=== PATIENT | male | born 1985 | race Caucasian/White ===

== ENCOUNTER 2016-09-19 04:00 | Emergency (ER) | payer SELFPAY ==
[~2016-09-19] VITALS: Ht 170.2 cm; Wt 54.4 kg
[~2016-09-19 04:00] MED LIST: AMOX500C2 PO; CIPR-225 PO; CIPR500T4 PO; CPR500T PO; CYCL10TA9 PO; HYDR-757 PO; HYDR118S10 PO; HYDR1TAB PO; HYDR1TAB3 PO; HYDR1TAB8 PO; IBP800T PO; KETO-22 PO; NAPR-243 PO; ONDA4TAB8 PO; ONDN4T PO; OXYC-471 PO; PRM25T PO; TAMS0.4C98 PO
[2016-09-19] MEDS ORDERED: NS IV 1000 ML 1,000 ML IV ONE (04:55)
[2016-09-19] MEDS ORDERED: KETOROLAC 30 MG/ML VIAL IVP STA (04:55)
[2016-09-19] MEDS ORDERED: fentaNYL INJECTION 100 MCG/2 ML AMP IVP STA ×2 (04:55→06:03)
--- NOTE | 2016-09-19 04:57 | ED GU-Male ---
General Chief Complaint: Back Problems Stated Complaint: KIDNEY STONE LEFT SIDE Source: patient Exam Limitations: no limitations (SHINE WARE MD) History of Present Illness Time seen by provider: 04:45 Initial Comments Here with report of left flank pain that onset 2 hours prior to arrival and states was quite significant. Does have history of kidney stones. He states that he's had intermittent pain over the last several months and states he has a known stone that they said will not pass. Denies nausea, vomiting or diarrhea. Denies fever or chills. Timing/Duration: this morning Severity/Quality: moderate, severe Location: left flank Radiation: groin Activities at Onset: none Prior Genitourinary Problems: similar symptoms Modifying Factors: Worsens With Movement Associated Symptoms: No fever/chills, No lower back pain, No nausea/vomiting, No urinary frequency (SHINE WARE MD) Allergies and Home Medications Allergies Coded Allergies: NKANo Known Allergies (Unverified Allergy, Mild, 09/13/09) Home Medications No Active Prescriptions or Reported Meds Constitutional: see HPINo chills, No fever EENTM: no symptoms reported Respiratory: no symptoms reported Cardiovascular: no symptoms reported Gastrointestinal: no symptoms reported Genitourinary: see HPI flank paindenies hematuria, denies pain Musculoskeletal: no symptoms reported Skin: no symptoms reported (SHINE WARE MD) All Other Systemes Reviewed Negative Unless Noted: Yes (SHINE WARE MD) Past Mijycwe-Mvsios-Hbygla Hx Patient Social History Alcohol Use: Denies Use Recreational Drug Use: No Smoking Status: Current Everyday Smoker Type Used: Cigarettes Recent Foreign Travel: No Contact w/Someone Who Travel: No Recent Hopitalizations: No (SHINE WARE MD) Seasonal Allergies Seasonal Allergies: No (SHINE WARE MD) Surgeries HX Surgeries: Yes (BIOPSY ON LYMPH NODE, RIGHT WRIST / TENDON SURGERY-?CARPAL TUNNEL? ) Surgeries: Orthopedic (SHINE WARE MD) Respiratory Hx Respiratory Disorders: No (SHINE WARE MD) Cardiovascular Hx Cardiac Disorders: No (SHINE WARE MD) Neurological Hx Neurological Disorders: No (SHINE WARE MD) Reproductive System Hx Reproductive Disorders: No Sexually Transmitted Disease: No HIV/AIDS: No (SHINE WARE MD) Genitourinary Hx Genitourinary Disorders: Yes (TESTICULAR TORSION X 2--NO SURGERY) Genitourinary Disorders: Kidney Stones (SHINE WARE MD) Gastrointestinal Hx Gastrointestinal Disorders: No (SHINE WARE MD) Musculoskeletal Hx Musculoskeletal Disorders: Yes (R WRIST SURGERY) (SHINE WARE MD) Endocrine Hx Endocrine Disorders: No (SHINE WARE MD) HEENT HX ENT Disorders: No (SHINE WARE MD) Cancer Hx Cancer: No (SHINE WARE MD) Psychosocial Hx Psychiatric Problems: No (SHINE WARE MD) Integumentary HX Skin/Integumentary Disorder: No (SHINE WARE MD) Blood Transfusions Hx Blood Disorders: No Adverse Reaction to a Blood Tr: No (SHINE WARE MD) Reviewed Nursing Assessment Reviewed/Agree w Nursing PMH: Yes (SHINE WARE MD) Family Medical History Significant Family History: Heart Disease, Diabetes (SHINE WARE MD) Physical Exam Vital Signs Vital Sign - Last 12Hours 09/19/16 04:21 Temp 98.3 Pulse 61 Resp 18 B/P 138/88 Pulse Ox 99 O2 Delivery Room Air (MEET KIMBLE MD) Vital Signs Capillary Refill : (SHINE WAER MD) General Appearance: WD/WN no apparent distress HEENT: PERRL/EOMI pharynx normal Neck: full range of motion supple Cardiovascular: regular rate, rhythm no murmur Respiratory: lungs clear normal breath sounds Gastrointestinal: non tender soft Back: no vertebral tendernessNo CVA tenderness (R), CVA tenderness (L) Extremities: normal range of motion non-tender normal inspection Neurologic/Psychiatric: alert oriented x 3 Skin: normal color warm/dry (SHINE WARE MD) Progress/Results/Core Measures Results/Orders Lab Results Laboratory Tests Test 09/19/16 05:00 09/19/16 05:06 Range/Units Urine Bacteria TRACE /HPF Urine Bilirubin NEGATIVE NEGATIVE Urine Calcium Oxalate Crystals FEW H /LPF Urine Casts NONE /LPF Urine Clarity SLIGHTLY CLOUDY Urine Color YELLOW Urine Crystals PRESENT H /LPF Urine Culture Indicated NO Urine Glucose (UA) NEGATIVE NEGATIVE Urine Ketones NEGATIVE NEGATIVE Urine Leukocyte Esterase 1+ H NEGATIVE Urine Mucus SMALL H /LPF Urine Nitrite NEGATIVE NEGATIVE Urine Protein 3+ H NEGATIVE Urine RBC TNTC H /HPF Urine RBC (Auto) 5+ H NEGATIVE Urine Specific Rumsey 1.025 H 1.016-1.022 Urine Squamous Epithelial Cells 0-2 /HPF Urine Urobilinogen NORMAL NORMAL MG/DL Urine WBC RARE /HPF Urine pH 6 5-9 Alanine Aminotransferase (ALT/SGPT) 10 0-55 U/L Albumin 4.3 3.2-4.5 G/DL Alkaline Phosphatase 58 40-136 U/L Anion Gap 11 5-14 MMOL/L Aspartate Amino Transf (AST/SGOT) 15 5-34 U/L BUN/Creatinine Ratio 11 Basophils # (Auto) 0.0 0.0-0.1 10^3/uL Basophils (%) (Auto) 0 0-10 % Blood Urea Nitrogen 13 7-18 MG/DL Calcium Level 9.1 8.5-10.1 MG/DL Carbon Dioxide Level 24 21-32 MMOL/L Chloride Level 107 98-107 MMOL/L Creatinine 1.19 0.60-1.30 MG/DL Eosinophils # (Auto) 0.4 H 0.0-0.3 10^3/uL Eosinophils (%) (Auto) 4 0-10 % Estimat Glomerular Filtration Rate > 60 Glucose Level 98 70-105 MG/DL Hematocrit 40 40-54 % Hemoglobin 14.1 13.3-17.7 G/DL Lymphocytes # (Auto) 2.6 1.0-4.0 X 10^3 Lymphocytes (%) (Auto) 29 12-44 % Mean Corpuscular Hemoglobin 31 25-34 PG Mean Corpuscular Hemoglobin Concent 35 32-36 G/DL Mean Corpuscular Volume 90 80-99 FL Mean Platelet Volume 10.9 H 7.4-10.4 FL Monocytes # (Auto) 0.9 0.0-1.0 X 10^3 Monocytes (%) (Auto) 9 0-12 % Neutrophils # (Auto) 5.3 1.8-7.8 X 10^3 Neutrophils (%) (Auto) 57 42-75 % Platelet Count 194 130-400 10^3/uL Potassium Level 4.0 3.6-5.0 MMOL/L Red Blood Count 4.50 4.35-5.85 10^6/uL Red Cell Distribution Width 13.3 10.0-14.5 % Sodium Level 142 135-145 MMOL/L Total Bilirubin 0.2 0.1-1.0 MG/DL Total Protein 7.1 6.4-8.2 G/DL White Blood Count 9.2 4.3-11.0 10^3/uL (MEET KIMBLE MD) Lab Results Laboratory Tests Test 09/19/16 05:00 09/19/16 05:06 Range/Units Urine Bacteria TRACE /HPF Urine Bilirubin NEGATIVE NEGATIVE Urine Calcium Oxalate Crystals FEW H /LPF Urine Casts NONE /LPF Urine Clarity SLIGHTLY CLOUDY Urine Color YELLOW Urine Crystals PRESENT H /LPF Urine Culture Indicated NO Urine Glucose (UA) NEGATIVE NEGATIVE Urine Ketones NEGATIVE NEGATIVE Urine Leukocyte Esterase 1+ H NEGATIVE Urine Mucus SMALL H /LPF Urine Nitrite NEGATIVE NEGATIVE Urine Protein 3+ H NEGATIVE Urine RBC TNTC H /HPF Urine RBC (Auto) 5+ H NEGATIVE Urine Specific Rumsey 1.025 H 1.016-1.022 Urine Squamous Epithelial Cells 0-2 /HPF Urine Urobilinogen NORMAL NORMAL MG/DL Urine WBC RARE /HPF Urine pH 6 5-9 Alanine Aminotransferase (ALT/SGPT) 10 0-55 U/L Albumin 4.3 3.2-4.5 G/DL Alkaline Phosphatase 58 40-136 U/L Anion Gap 11 5-14 MMOL/L Aspartate Amino Transf (AST/SGOT) 15 5-34 U/L BUN/Creatinine Ratio 11 Basophils # (Auto) 0.0 0.0-0.1 10^3/uL Basophils (%) (Auto) 0 0-10 % Blood Urea Nitrogen 13 7-18 MG/DL Calcium Level 9.1 8.5-10.1 MG/DL Carbon Dioxide Level 24 21-32 MMOL/L Chloride Level 107 98-107 MMOL/L Creatinine 1.19 0.60-1.30 MG/DL Eosinophils # (Auto) 0.4 H 0.0-0.3 10^3/uL Eosinophils (%) (Auto) 4 0-10 % Estimat Glomerular Filtration Rate > 60 Glucose Level 98 70-105 MG/DL Hematocrit 40 40-54 % Hemoglobin 14.1 13.3-17.7 G/DL Lymphocytes # (Auto) 2.6 1.0-4.0 X 10^3 Lymphocytes (%) (Auto) 29 12-44 % Mean Corpuscular Hemoglobin 31 25-34 PG Mean Corpuscular Hemoglobin Concent 35 32-36 G/DL Mean Corpuscular Volume 90 80-99 FL Mean Platelet Volume 10.9 H 7.4-10.4 FL Monocytes # (Auto) 0.9 0.0-1.0 X 10^3 Monocytes (%) (Auto) 9 0-12 % Neutrophils # (Auto) 5.3 1.8-7.8 X 10^3 Neutrophils (%) (Auto) 57 42-75 % Platelet Count 194 130-400 10^3/uL Potassium Level 4.0 3.6-5.0 MMOL/L Red Blood Count 4.50 4.35-5.85 10^6/uL Red Cell Distribution Width 13.3 10.0-14.5 % Sodium Level 142 135-145 MMOL/L Total Bilirubin 0.2 0.1-1.0 MG/DL Total Protein 7.1 6.4-8.2 G/DL White Blood Count 9.2 4.3-11.0 10^3/uL (SHINE WARE MD) Medications Given in ED Current Medications Medications Dose Ordered Sig/Jeffrey Route Start Time Stop Time Status Last Admin Dose Admin Sodium Chloride 1,000 ml @ 0 mls/hr Q0M ONCE IV 09/19/16 04:55 09/19/16 04:57 DC 09/19/16 05:08 999 MLS/HR (MEET KIMBLE MD) Medications Given in ED Current Medications Medications Dose Ordered Sig/Jeffrey Route Start Time Stop Time Status Last Admin Dose Admin Sodium Chloride 1,000 ml @ 0 mls/hr Q0M ONCE IV 09/19/16 04:55 09/19/16 04:57 DC 09/19/16 05:08 999 MLS/HR (SHINE WARE MD) Vital Signs/I&O Vital Sign - Last 12Hours 09/19/16 04:21 Temp 98.3 Pulse 61 Resp 18 B/P 138/88 Pulse Ox 99 O2 Delivery Room Air (MEET KIMBLE MD) Vital Signs/I&O Vital Sign - Last 12Hours 09/19/16 04:21 Temp 98.3 Pulse 61 Resp 18 B/P 138/88 Pulse Ox 99 O2 Delivery Room Air (SHINE WARE MD) Progress Note : Progress Note Seen and evaluated. IV, labs and UA ordered. CT abdomen pelvis ordered. Fentanyl 75 g IV and Toradol 30 mg IV ordered. Normal saline 1 L bolus. 0600 : Care transferred to Dr. Kimble. CT results pending but preliminary views shows 8 mm stone in the proximal ureter. Repeat fentanyl 75 g IV. (SHINE WARE MD) Progress Note : Time: 06:54 Progress Note I assumed care of the patient from Dr. Ware. The patient has a 6-8 mm obstructing left mid ureteral calculi. There is no evidence of an acute pyelonephritis. I visited with Dr. Tomas Lo at [facility]. His recommendation was, providing the patient couldn't tolerate oral pain medication , that the patient be discharged for close follow-up with his local urologist Dr. Newman on Wednesday. I visited with the patient and his father and we agreed on oral Percocet and Zofran for pain and nausea. He will call Dr. Villasenor's office on Wednesday. The patient will return the emergency Department if he has progression of his pain, associated fever, nausea, vomiting, or other acute problem. (MEET KIMBLE MD) Departure Impression Impression: Primary Impression: Ureteral calculi Disposition: HOME, SELF-CARE Condition: Improved Departure-Patient Inst. Decision time for Depature: 06:57 (MEET KIMBLE MD) Referrals: CECILIA WALTERS DO (PCP) Primary Care Physician BETINA ARMSTRONG APRN (Family) Primary Care Physician MISBAH VILLASENOR MD Patient Instructions: Kidney Stones (DC) Add. Discharge Instructions: Percocet and Zofran as needed for pain and nausea. Return if you have any further problems. Call Dr. Hernandez's office Wednesday. Close follow-up is needed for your 8 mm left kidney stone. All discharge instructions reviewed with patient and/or family. Voiced understanding. Scripts No Active Prescriptions or Reported Meds SHINE WARE MD Sep 19, 2016 04:57 MEET KIMBLE MD Sep 19, 2016 06:59
[2016-09-19 05:17] LABS: BILIRUBIN,URINE NEGATIVE (NEGATIVE); KETONES,URINE NEGATIVE (NEGATIVE); LEUKOCYTE ESTERASE ,URINE 1+ (NEGATIVE); NITRITE,URINE NEGATIVE (NEGATIVE); PH,URINE 6 (5-9); PROTEIN,URINE 3+ (NEGATIVE); UROBILINOGEN,URINE NORMAL (NORMAL)
[2016-09-19 05:18] LABS: BASOPHILS % (AUTO) 0 % (0-10); EOSINOPHILS # (AUTO) 0.4 10^3/uL (0.0-0.3); EOSINOPHILS % (AUTO) 4 % (0-10); LYMPHOCYTES # (AUTO) 2.6 X 10^3 (1.0-4.0); LYMPHOCYTES % (AUTO) 29 % (12-44); MEAN CORPUSCULAR HEMOGLOBIN 31 PG (25-34); MEAN CORPUSCULAR HGB CONC 35 G/DL (32-36); MEAN CORPUSCULAR VOLUME 90 FL (80-99); MEAN PLATELET VOLUME 10.9 FL (7.4-10.4); MONOCYTES # (AUTO) 0.9 X 10^3 (0.0-1.0); MONOCYTES % (AUTO) 9 % (0-12); NEUTROPHILS # (AUTO) 5.3 X 10^3 (1.8-7.8); NEUTROPHILS % (AUTO) 57 % (42-75); PLATELET COUNT 194 10^3/uL (130-400); RED CELL DISTRIBUTION WIDTH 13.3 % (10.0-14.5); WHITE BLOOD COUNT 9.2 10^3/uL (4.3-11.0)
[2016-09-19 05:30] LABS: CALCIUM OXALATE CRYSTALS,UR FEW /LPF; SQUAMOUS EPITHELIAL CELL,UR 0-2 /HPF; WBC,URINE RARE /HPF
[2016-09-19 05:35] LABS: ALANINE AMINOTRANSFERASE 10 U/L (0-55); ALBUMIN 4.3 G/DL (3.2-4.5); ANION GAP 11 MMOL/L (5-14); ASPARTATE AMINO TRANSFERASE 15 U/L (5-34); BILIRUBIN,TOTAL 0.2 MG/DL (0.1-1.0); BLOOD UREA NITROGEN 13 MG/DL (7-18); BUN/CREATININE RATIO 11; CALCIUM 9.1 MG/DL (8.5-10.1); CARBON DIOXIDE 24 MMOL/L (21-32); CHLORIDE 107 MMOL/L (98-107); CREATININE SERUM 1.19 MG/DL (0.60-1.30); GFR ESTIMATED > 60; GLUCOSE 98 MG/DL (70-105); SODIUM 142 MMOL/L (135-145); TOTAL PROTEIN 7.1 G/DL (6.4-8.2)
[2016-09-19 07:15] VITALS: BP 124/68
[2016-09-19] MEDS ORDERED: HYDROcodone/APAP 5 MG/325 MG (LORTAB) TAB PO ONE (07:15)
--- NOTE | 2016-09-19 07:41 | Diagnostic Imaging Report ---
PROCEDURE: CT urinary tract, rule out kidney stone. TECHNIQUE: Multiple contiguous axial images were obtained through the abdomen and pelvis without the use of intravenous contrast. INDICATION: Abdominal pain COMPARISON: 03/24/2016 FINDINGS: The lung bases are clear. The liver, gallbladder, pancreas, spleen and adrenal glands appear unremarkable. There is a 5 mm stone in the proximal left ureter just distal to the ureteropelvic junction with moderate hydronephrosis and mild inflammatory change surrounding the left kidney. The right kidney appears unremarkable. The appendix appears normal. There is no bowel wall thickening or distention. There is no free fluid, adenopathy or additional inflammatory change demonstrated. Abdominal aorta appears normal in caliber. No acute osseous abnormality is seen. IMPRESSION: 1. There is a 5 mm stone in the proximal left ureter with moderate obstructive changes. 2. No additional significant abnormality is demonstrated. Report given to [place] RADHA Holbrook) at 7:40 a.m. 09/19/2016/cb Dictated by: Dictated on workstation # [id number]
== END 2016-09-19 07:15 | disposition home or self-care (01) ==
LOC: EDUNIT# 04:00 → ER 04:03
DX: N20.1 Calculus of ureter (principal); F17.210 Nicotine dependence, cigarettes, uncomplicated
CPT/HCPCS: 36415; 74176; 80053; 81000; 85025; 96361; 96374; 96375; 96376

== ENCOUNTER 2016-10-14 18:51 | Emergency (ER) | payer SELFPAY ==
[~2016-10-14] VITALS: Ht 170.2 cm; Wt 54.4 kg
[2016-10-14 19:02] VITALS: BP 129/63
--- OUTSIDE RECORDS SUMMARY | 2016-11-08 05:12 | XMS REPORT ---
Author Author BETINA ARMSTRONG Organization [employer] Address Unknown Phone Unavailable Care Team Providers Care Photocopying Machine Operator Name Role Phone BETINA ARMSTRONG CP Unavailable Allergies No Known Allergies Problems Problem Type Condition Code Onset Dates Condition Status Problem Tobacco abuse Z72.0 Active Problem Tobacco abuse counseling Z71.6 Active Problem Hematuria R31.9 Active Assessment Elevated hemoglobin A1c R73.09 Active Medications No Known Medications Results No Known Results Summary Purpose [employer] Submission
--- OUTSIDE RECORDS SUMMARY | 2016-11-08 05:13 | XMS REPORT ---
Author Author BETINA ARMSTRONG Organization [employer] Address Unknown Phone Unavailable Care Team Providers Care Nuclear Auxiliary Operator Name Role Phone BETINA ARMSTRONG CP Unavailable Allergies No Known Allergies Problems Problem Type Condition Code Onset Dates Condition Status Problem Tobacco abuse Z72.0 Active Problem Tobacco abuse counseling Z71.6 Active Problem Hematuria R31.9 Active Medications No Known Medications Results No Known Results Summary Purpose [employer] Submission
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
== END 2016-10-14 20:36 | disposition left against medical advice (07) ==
LOC: EDUNIT# 18:51 → ER 18:53
DX: R10.32 Left lower quadrant pain (principal); Z53.21 Procedure and treatment not carried out due to patient leaving prior to being seen by health care provider
CPT/HCPCS: 99281

== ENCOUNTER 2018-02-09 10:33 | Emergency (ER) | payer BC, OTHER ==
[~2018-02-09] VITALS: Ht 170.2 cm; Wt 54.4 kg
--- NOTE | 2018-02-09 10:56 | ED Neck-Back Pain/Injury ---
General Chief Complaint: General Problems/Pain Stated Complaint: PAIN LEFT SIDE OF BODY Source of Information: Patient Exam Limitations: No Limitations History of Present Illness Date Seen by Provider: Feb 09, 2018 Time Seen by Provider: 10:48 Initial Comments Patient presents to ER by private conveyance with a chief complaint that Wednesday, 5 days ago he had some left sided body pain started in his left neck and radiated down his back and felt like pins and needles. He has no history of trauma he did not fall off anything or get hit. He has no history of back or neck pain. He said about 10 years ago he had a large lymph node on his left neck that was biopsied and was found to be reactive. He denies any recent earaches, sore throats, malaise, fevers, colds, allergies. He denies any weight gain or loss. He's having some pain in his left neck jaw and trapezius area. He has upper and lower dentures with implants that he is planning on getting placed but no drainage, discharge, pain in his jaws or gums. He has not taken anything for it and it gets better and comes back in episodes. He's had no fevers, chills, nausea, vomiting, loss of control of bowel or bladder, numbness , falls or weakness. Allergies and Home Medications Allergies Coded Allergies: NKANo Known Allergies (Unverified Allergy, Mild, 09/13/09) Home Medications No Active Prescriptions or Reported Meds Patient Home Medication List Home Medication List Reviewed: Yes Constitutional: No chills, No diaphoresis EENTM: No hearing loss, No ear pain Respiratory: No cough, No short of breath, No wheezing Cardiovascular: No chest pain, No edema Gastrointestinal: No abdominal pain, No constipation Genitourinary: No dysuria, No frequency Musculoskeletal: No back pain, No joint pain Past Whnwfhu-Gavtgd-Hvooyd Hx Patient Social History Alcohol Beverage of Choice: Beer Type Used: Cigarettes (0.5 ppd) Recent Foreign Travel: No Contact w/Someone Who Travel: No Recent Hopitalizations: No Seasonal Allergies Seasonal Allergies: No Past Medical History Orthopedic Reproductive Disorders: No Sexually Transmitted Disease: No HIV/AIDS: No Kidney Stones Adverse Reaction/Blood Tranf: No Family Medical History Heart Disease, Diabetes Physical Exam Vital Signs Vital Signs - First Documented 02/09/18 10:38 Temp 98.0 Pulse 89 Resp 18 B/P (MAP) 118/85 (96) Pulse Ox 98 O2 Delivery Room Air Capillary Refill : Height, Weight, BMI Height: 5'7.00" Weight: 120lbs. oz. [id number]; 18.79 BMI Method:Stated General Appearance: No Apparent Distress, Thin HEENT: PERRL/EOMI, TMs Normal, Normal ENT Inspection, Pharynx Normal, Moist Mucous Membranes; No Pharyngeal Erythema, No Tonsillar Exudate, No Tonsillar Enlargement; Other (dentures upper and lower without erythema or discharge noted ) Neck: Full Range of Motion, Other (he is holding his left neck and spasm with tenderness of the sternocleidomastoid, trapezius, sore cervical spine and there is a left anterior lymph node about 1.2 cm greatest diameter at the angle of the left mandible that is tender to palpation, mobile.) Cardiovascular: Regular Rate, Rhythm, Normal Peripheral Pulses Respiratory: Chest Non Tender, Lungs Clear, Normal Breath Sounds, No Accessory Muscle Use, No Respiratory Distress Gastrointestinal: Non Tender, Soft Back: Normal Inspection, Vertebral Tenderness (cervical and upper thoracic midline and left sided paraspinous muscles are tender to palpation.) Neurologic/Psychiatric: Alert, Oriented x3, No Motor/Sensory Deficits, Normal Mood/Affect, 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, Other (normal gait) Skin: Normal Color, Warm/Dry, Other (well-healed, old scar over the left anterior cervical lymph node chains approximately 1/2 cm long) Progress/Results/Core Measures Results/Orders Lab Results Laboratory Tests Test 02/09/18 10:45 02/09/18 11:02 Range/Units Group A Streptococcus Screen NEGATIVE NEGATIVE White Blood Count 11.6 H 4.3-11.0 10^3/uL Red Blood Count 4.79 4.35-5.85 10^6/uL Hemoglobin 14.8 13.3-17.7 G/DL Hematocrit 43 40-54 % Mean Corpuscular Volume 89 80-99 FL Mean Corpuscular Hemoglobin 31 25-34 PG Mean Corpuscular Hemoglobin Concent 35 32-36 G/DL Red Cell Distribution Width 14.1 10.0-14.5 % Platelet Count 208 130-400 10^3/uL Mean Platelet Volume 10.7 H 7.4-10.4 FL Neutrophils (%) (Auto) 62 42-75 % Lymphocytes (%) (Auto) 21 12-44 % Monocytes (%) (Auto) 14 H 0-12 % Eosinophils (%) (Auto) 3 0-10 % Basophils (%) (Auto) 0 0-10 % Neutrophils # (Auto) 7.1 1.8-7.8 X 10^3 Lymphocytes # (Auto) 2.5 1.0-4.0 X 10^3 Monocytes # (Auto) 1.6 H 0.0-1.0 X 10^3 Eosinophils # (Auto) 0.3 0.0-0.3 10^3/uL Basophils # (Auto) 0.1 0.0-0.1 10^3/uL Sodium Level 141 135-145 MMOL/L Potassium Level 4.5 3.6-5.0 MMOL/L Chloride Level 106 98-107 MMOL/L Carbon Dioxide Level 27 21-32 MMOL/L Anion Gap 8 5-14 MMOL/L Blood Urea Nitrogen 12 7-18 MG/DL Creatinine 1.04 0.60-1.30 MG/DL Estimat Glomerular Filtration Rate > 60 BUN/Creatinine Ratio 12 Glucose Level 105 70-105 MG/DL Calcium Level 9.9 8.5-10.1 MG/DL Total Bilirubin 0.7 0.1-1.0 MG/DL Aspartate Amino Transf (AST/SGOT) 14 5-34 U/L Alanine Aminotransferase (ALT/SGPT) 7 0-55 U/L Alkaline Phosphatase 78 40-136 U/L Total Protein 8.3 H 6.4-8.2 GM/DL Albumin 4.8 H 3.2-4.5 GM/DL Monoscreen NEGATIVE NEGATIVE My Orders Orders - POORNIMA CARTER Cbc With Automated Diff (02/09/18 10:47) Comprehensive Metabolic Panel (02/09/18 10:47) Monotest (02/09/18 10:47) Rapid Strep A Screen (02/09/18 10:47) Ketorolac Injection (Toradol Injection) (02/09/18 11:00) Medications Given in ED Current Medications Medications Dose Ordered Sig/Jeffrey Route Start Time Stop Time Status Last Admin Dose Admin Ketorolac Tromethamine 30 mg ONCE ONCE IM 02/09/18 11:00 02/09/18 11:01 DC 02/09/18 10:59 30 MG Vital Signs/I&O 02/09/18 10:38 Temp 98.0 Pulse 89 Resp 18 B/P (MAP) 118/85 (96) Pulse Ox 98 O2 Delivery Room Air Progress Progress Note : Time: 10:59 Progress Note Sounds like he is having some torticollis that may also be involving a radiculopathy in his back and thoracic spine. He has a slightly enlarged non- worrisome lymph node at the angle of the mandible. Most likely this is reactive but he doesn't endorse any recent infection. Could be viral torticollis. We'll get a mono and strep test. Finally we will obtain CBC CMP just to look for evidence of leukocytosis that might make us think about a lymphoma/leukemia. While he is rather thin at baseline he does not endorse recent weight loss. Departure Impression Primary Impression: Torticollis, acute Additional Impression: Back pain Qualified Codes: M54.6 - Pain in thoracic spine Disposition: 01 HOME, SELF-CARE Condition: Improved Departure-Patient Inst. Decision time for Depature: 11:44 Referrals: NO,LOCAL PHYSICIAN (PCP/Family) Primary Care Physician Patient Instructions: Torticollis (DC) Add. Discharge Instructions: This kind of neck and back pain is typically caused by a viral episode and best responds to NSAIDs such as Naprosyn 2 capsules twice a day or ibuprofen 4 tablets every 8 hours on a scheduled basis. If you're having spasms of the muscles in your neck and back then you can take one tablet of the Flexeril every 8 hours to help relieve the spasm however this will cause drowsiness. You can use creams or rubs such as icy hot, Biofreeze etc. You can also use Tylenol 1000 mg every 8 hours as needed for pain. Expect usually improvement in the first 1-2 weeks however if it progresses beyond that or you start to have numbness, weakness with falls, loss of control of your bowels or bladder then you should return to the doctor's office/ER. All discharge instructions reviewed with patient and/or family. Voiced understanding. Scripts Cyclobenzaprine HCl (Cyclobenzaprine HCl) 10 Mg Tablet 10 MG PO Q8H PRN for SPASMS, #20 TAB 0 Refills Prov: POORNIMA CARTER 02/09/18 Work/School Note: Work Release Form Date Seen in the Emergency Department: Feb 09, 2018 Return to Work: Feb 10, 2018 Restrictions: No Restrictions POORNIMA CARTER Feb 09, 2018 10:56
[2018-02-09] MEDS ORDERED: KETOROLAC 30 MG/ML VIAL IM ONE (11:00)
[2018-02-09 11:18] LABS: BASOPHILS # (AUTO) 0.1 10^3/uL (0.0-0.1); BASOPHILS % (AUTO) 0 % (0-10); EOSINOPHILS # (AUTO) 0.3 10^3/uL (0.0-0.3); EOSINOPHILS % (AUTO) 3 % (0-10); HEMATOCRIT 43 % (40-54); HEMOGLOBIN 14.8 G/DL (13.3-17.7); LYMPHOCYTES # (AUTO) 2.5 X 10^3 (1.0-4.0); LYMPHOCYTES % (AUTO) 21 % (12-44); MEAN CORPUSCULAR HEMOGLOBIN 31 PG (25-34); MEAN CORPUSCULAR HGB CONC 35 G/DL (32-36); MEAN CORPUSCULAR VOLUME 89 FL (80-99); MEAN PLATELET VOLUME 10.7 FL (7.4-10.4); MONOCYTES # (AUTO) 1.6 X 10^3 (0.0-1.0); MONOCYTES % (AUTO) 14 % (0-12); NEUTROPHILS # (AUTO) 7.1 X 10^3 (1.8-7.8); NEUTROPHILS % (AUTO) 62 % (42-75); PLATELET COUNT 208 10^3/uL (130-400); RED BLOOD COUNT 4.79 10^6/uL (4.35-5.85); RED CELL DISTRIBUTION WIDTH 14.1 % (10.0-14.5); WHITE BLOOD COUNT 11.6 10^3/uL (4.3-11.0)
[2018-02-09 11:37] LABS: ALANINE AMINOTRANSFERASE 7 U/L (0-55); ALBUMIN 4.8 GM/DL (3.2-4.5); ALKALINE PHOSPHATASE 78 U/L (40-136); BILIRUBIN,TOTAL 0.7 MG/DL (0.1-1.0); BUN/CREATININE RATIO 12; CALCIUM 9.9 MG/DL (8.5-10.1); CARBON DIOXIDE 27 MMOL/L (21-32); CHLORIDE 106 MMOL/L (98-107); CREATININE SERUM 1.04 MG/DL (0.60-1.30); GFR ESTIMATED > 60; GLUCOSE 105 MG/DL (70-105); POTASSIUM 4.5 MMOL/L (3.6-5.0); SODIUM 141 MMOL/L (135-145); TOTAL PROTEIN 8.3 GM/DL (6.4-8.2)
[2018-02-09] MEDS ORDERED: CYCL10TA9 PO (11:49)
[2018-02-09 12:03] VITALS: BP 118/85
[2018-02-10] MEDS ORDERED: ONDA8TAB9 PO (18:02)
== END 2018-02-09 12:04 | disposition home or self-care (01) ==
LOC: EDUNIT# 10:33 → ER 10:35
DX: M43.6 Torticollis (principal); M54.2 Cervicalgia; Z87.442 Personal history of urinary calculi; Z82.49 Family history of ischemic heart disease and other diseases of the circulatory system
CPT/HCPCS: 36415; 80053; 85025; 86308; 87430; 96372; 99284

== ENCOUNTER 2018-02-10 14:46 | Emergency (ER) | payer BC ==
[~2018-02-10] VITALS: Ht 170.2 cm; Wt 52.6 kg
[2018-02-10] MEDS ORDERED: NS IV 1000 ML 1,000 ML IV SCH ×2 (15:18→17:10)
[2018-02-10] MEDS ORDERED: ACETAMINOPHEN 500 MG TAB (TYLENOL) PO STA (15:20)
--- NOTE | 2018-02-10 15:37 | ED General ---
General Chief Complaint: Fever-Adult/Adol Stated Complaint: BLURRY VISION,HARRELL,FEVER,CAN'T SWALLOW Nursing Triage Note: pt presents to ed from [facility] with complaints of fever, HARRELL, Blurred Vision, difficulty swallowing and sore throat. Pt was seen in ED yesterday for Sore throat, and neck swelling but was told it was a strained muscle and sent home with a prescription for flexeril. Pt reports around 2300 yesterday he started feeling worse and started vomiting as well. Nursing Sepsis Screen: No Definite Risk History of Present Illness Date Seen by Provider: Feb 10, 2018 Time Seen by Provider: 15:15 Initial Comments 32-year-old male returns for reevaluation of worsening symptoms. He was evaluated yesterday for neck pain and treated for viral torticollis with supportive care and Flexeril, WBC 11.6, neg strep and mono. He denies having any Tylenol or ibuprofen today. He denies any recent weight loss, however nausea for the last 3-4 days and vomiting for the last 12 hours. He is intermittently had problems with lymphadenopathy left cervical node. Patient denied any recent tick bites, dental infection, cough, night sweats, or other concerning risk. Timing/Duration: 3-4 Days Severity: Moderate Associated Systoms: No Cough; Diaphoresis, Fever/Chills, Headaches, Loss of Appetite, Nausea/Vomiting; No Rash, No Seizure, No Shortness of Air, No Syncope ; Weakness Allergies and Home Medications Allergies Coded Allergies: NKANo Known Allergies (Unverified Allergy, Mild, 09/13/09) Home Medications Cyclobenzaprine HCl 10 Mg Tablet, 10 MG PO Q8H PRN for SPASMS Prescribed by: POORNIMA CARTER on 02/09/18 1149 Ondansetron 8 Mg Tab.rapdis, 8 MG PO Q8H PRN for NAUSEA/VOMITING-2ND LINE Prescribed by: NATALY MILLER on 02/10/18 1802 Patient Home Medication List Home Medication List Reviewed: Yes Review of Systems Constitutional: no symptoms reported, see HPI EENTM: see HPI, blurred vision; No eye pain, No mouth swelling, No nose congestion, No throat pain, No throat swelling Respiratory: no symptoms reported, see HPI; No hemoptysis, No short of breath Gastrointestinal: see HPI, abdominal pain, loss of appetite, nausea, vomiting Genitourinary: see HPI, decreased output Psychiatric/Neurological: See HPI, Headache All Other Systems Reviewed Negative Unless Noted: Yes Past Hbpwqfj-Bkpski-Gnztdt Hx Past Med/Social Hx: Reviewed Nursing Past Med/Soc Hx Patient Social History Alcohol Use: Denies Use Number of Drinks Today: AA Alcohol Beverage of Choice: Beer Recreational Drug Use: Yes (SMOKES) Type Used: Cigarettes 2nd Hand Smoke Exposure: Yes Recent Foreign Travel: No Contact w/Someone Who Travel: No Recent Infectious Disease Expo: No Recent Hopitalizations: No Physical Abuse: No Sexual Abuse: No Mistreated: No Fear: No Seasonal Allergies Seasonal Allergies: No Past Medical History Surgeries: Yes (BIOPSY ON LYMPH NODE, RIGHT WRIST / TENDON SURGERY-?CARPAL TUNNEL? ) Orthopedic, Vasectomy Respiratory: No Cardiac: No Neurological: No Reproductive Disorders: No Sexually Transmitted Disease: No HIV/AIDS: No Kidney Stones Gastrointestinal: No Musculoskeletal: Yes (R WRIST SURGERY) Endocrine: No Cancer: No Psychosocial: No Nursing Suicide Risk Score: 0 Integumentary: No Blood Disorders: No Adverse Reaction/Blood Tranf: No Family Medical History Heart Disease, Diabetes Physical Exam Vital Signs Vital Signs - First Documented 02/10/18 15:04 Temp 103.1 Pulse 95 Resp 18 B/P (MAP) 126/73 (90) Pulse Ox 97 Capillary Refill : Less Than 3 Seconds Height, Weight, BMI Height: 5'7.00" Weight: 116lbs. 0oz. 52.446292px; 18.79 BMI Method:Stated General Appearance: WD/WN, Mild Distress HEENT: PERRL/EOMI, TMs Normal, Normal ENT Inspection Neck: Full Range of Motion, Normal Inspection, Supple; No Carotid Bruit; Lymphadenopathy (L), Tender Lateral, Other (no nuchal rigidity) Respiratory: Chest Non Tender, Lungs Clear, Normal Breath Sounds Cardiovascular: Regular Rate, Rhythm, No Edema, No Murmur, Normal Peripheral Pulses Gastrointestinal: Normal Bowel Sounds, Non Tender, Soft Back: Normal Inspection, No CVA Tenderness, No Vertebral Tenderness Extremity: Normal Capillary Refill, Normal Inspection, Normal Range of Motion, Non Tender, No Pedal Edema Neurologic/Psychiatric: Alert, Oriented x3, No Motor/Sensory Deficits, Normal Mood/Affect Skin: Normal Color, Warm/Dry, Other (skin turgor less than 2 second) Focused Exam Lactate Level 02/10/18 15:26: Lactic Acid Level 1.53 Lactic Acid Level Progress/Results/Core Measures Suspected Sepsis Recent Fever Within 48 Hours: No Infection Criteria Present: None New/Unexplained Altered Menta: No Sepsis Screen: No Definite Risk SIRS Temperature:103.1 Pulse: 95 Respiratory Rate: 18 Laboratory Tests 02/10/18 15:26: White Blood Count 10.4 Blood Pressure 126 /73 Mean: 90 02/10/18 15:26: Lactic Acid Level 1.53 Laboratory Tests 02/10/18 15:26: Creatinine 1.09, INR Comment 1.1, Platelet Count 169, Total Bilirubin 0.8 Results/Orders Lab Results Laboratory Tests Test 02/10/18 15:26 02/10/18 17:00 Range/Units White Blood Count 10.4 4.3-11.0 10^3/uL Red Blood Count 4.60 4.35-5.85 10^6/uL Hemoglobin 14.4 13.3-17.7 G/DL Hematocrit 41 40-54 % Mean Corpuscular Volume 89 80-99 FL Mean Corpuscular Hemoglobin 31 25-34 PG Mean Corpuscular Hemoglobin Concent 35 32-36 G/DL Red Cell Distribution Width 13.6 10.0-14.5 % Platelet Count 169 130-400 10^3/uL Mean Platelet Volume 11.0 H 7.4-10.4 FL Neutrophils (%) (Auto) 69 42-75 % Lymphocytes (%) (Auto) 15 12-44 % Monocytes (%) (Auto) 16 H 0-12 % Eosinophils (%) (Auto) 0 0-10 % Basophils (%) (Auto) 0 0-10 % Neutrophils # (Auto) 7.2 1.8-7.8 X 10^3 Lymphocytes # (Auto) 1.5 1.0-4.0 X 10^3 Monocytes # (Auto) 1.7 H 0.0-1.0 X 10^3 Eosinophils # (Auto) 0.0 0.0-0.3 10^3/uL Basophils # (Auto) 0.0 0.0-0.1 10^3/uL Prothrombin Time 14.3 12.2-14.7 SEC INR Comment 1.1 0.8-1.4 Activated Partial Thromboplast Time 34 24-35 SEC Sodium Level 137 135-145 MMOL/L Potassium Level 3.7 3.6-5.0 MMOL/L Chloride Level 102 98-107 MMOL/L Carbon Dioxide Level 27 21-32 MMOL/L Anion Gap 8 5-14 MMOL/L Blood Urea Nitrogen 13 7-18 MG/DL Creatinine 1.09 0.60-1.30 MG/DL Estimat Glomerular Filtration Rate > 60 BUN/Creatinine Ratio 12 Glucose Level 108 H 70-105 MG/DL Lactic Acid Level 1.53 0.50-2.00 MMOL/L Calcium Level 9.7 8.5-10.1 MG/DL Total Bilirubin 0.8 0.1-1.0 MG/DL Aspartate Amino Transf (AST/SGOT) 18 5-34 U/L Alanine Aminotransferase (ALT/SGPT) 13 0-55 U/L Alkaline Phosphatase 88 40-136 U/L Total Protein 8.4 H 6.4-8.2 GM/DL Albumin 4.7 H 3.2-4.5 GM/DL Urine Color LEA H Urine Clarity SLIGHTLY CLOUDY Urine pH 7 5-9 Urine Specific [place] 1.015 L 1.016-1.022 Urine Protein 2+ H NEGATIVE Urine Glucose (UA) NEGATIVE NEGATIVE Urine Ketones 3+ H NEGATIVE Urine Nitrite NEGATIVE NEGATIVE Urine Bilirubin NEGATIVE NEGATIVE Urine Urobilinogen 4 H NORMAL MG/DL Urine Leukocyte Esterase 1+ H NEGATIVE Urine RBC (Auto) 3+ H NEGATIVE Urine RBC 10-25 H /HPF Urine WBC 0-2 /HPF Urine Crystals NONE /LPF Urine Bacteria NEGATIVE /HPF Urine Casts NONE /LPF Urine Mucus LARGE H /LPF Urine Culture Indicated NO My Orders Orders - NATALY MILLER Cbc With Automated Diff (02/10/18 15:18) Comprehensive Metabolic Panel (02/10/18 15:18) Blood Culture (02/10/18 15:18) Urinalysis (02/10/18 15:18) Urine Culture (02/10/18 15:18) Protime With Inr (02/10/18 15:18) Partial Thromboplastin Time (02/10/18 15:18) Chest 1 View, Ap/Pa Only (02/10/18 15:18) Saline Lock/Iv-Start (02/10/18 15:18) Vital Signs Adult Sepsis Patie Q15M (02/10/18 15:18) O2 (02/10/18 15:18) Lactic Acid Analyzer (02/10/18 15:18) Ns Iv 1000 Ml (Sodium Chloride 0.9%) (02/10/18 15:18) Acetaminophen Tablet (Tylenol Tablet) (02/10/18 15:20) Saline Lock/Iv-Start (02/10/18 17:10) Ns Iv 1000 Ml (Sodium Chloride 0.9%) (02/10/18 17:10) Vital Signs/I&O 02/10/18 15:04 Temp 103.1 Pulse 95 Resp 18 B/P (MAP) 126/73 (90) Pulse Ox 97 Capillary Refill : Less Than 3 Seconds Blood Pressure Mean: 90 Progress Note : Time: 15:15 Progress Note Initial evaluation completed, we'll do thorough sepsis workup, due to fever of 103. 1615 Temp 101.7. WBC 10.7 with slightly elevated monocytes. WBC was 11.6 yesterday, these results were discussed with the patient and at this time it is probably more likely to be a viral infection than anything bacterial. 1640 lactic acid 1.53 and remaining labs all within normal limits. Patient does report improvement in symptoms. 1700 temperature 100.1. Patient denies any nausea or vomiting at this time. Will give second liter of normal saline. Urine dark yellow, almost brown. Awaiting UA results. 1800 temperature 98.7. 1815 patient denies any complaints at this time, taking crackers and water with no nausea or vomiting. Discharge instructions and return precautions reviewed with the patient. Diagnostic Imaging Diagonstic Imaging: Xray Plain Films/CT/US/NM/MRI: chest Comments [place] NAME: DESIRAE MATOS [facility] REC#: [id number] PT STATUS: REG ER : 1985 PHYSICIAN: NATALY MILLER ADMIT DATE: 02/10/18/ER Draft Date of Exam:02/10/18 CHEST 1 VIEW, AP/PA ONLY EXAM: Chest 1 view, AP/PA only. INDICATION: Fever. Headache. Blurry vision. COMPARISON: Chest radiographs of 09/13/2009. FINDINGS: Normal heart size and pulmonary vascularity. No focal pulmonary opacity, pleural effusion or pneumothorax. No acute osseous findings. IMPRESSION: No acute cardiopulmonary findings. Dictated on workstation # [id number] Dict: 02/10/18 1557 Trans: 02/10/18 1559 [facility] [id number] Interpreted by: MAYANK MORALES MD Electronically signed by: Departure Impression Primary Impression: Fever Qualified Codes: R50.9 - Fever, unspecified Additional Impression: Nausea and vomiting Disposition: 01 HOME, SELF-CARE Condition: Improved Departure-Patient Inst. Decision time for Depature: 18:00 Referrals: NO,LOCAL PHYSICIAN (PCP/Family) Primary Care Physician Patient Instructions: Fever, Adult (DC), Nausea and Vomiting, Adult (DC) Add. Discharge Instructions: Alternate between Tylenol 650 mg and ibuprofen 600 mg every 4 hours for fever or pain. Push clear liquid fluids for the next 8 hours. Then you may advance to bland diet. Use Zofran every 6 hours as needed for nausea or vomiting. Follow-up with a primary care provider or urgent care if symptoms are not improving or worsen. Follow up for enlarged lymph node, left neck. Return to emergency department for fever greater than 101 not relieved with Tylenol or ibuprofen, vomiting not improved with Zofran, or new problems. All discharge instructions reviewed with patient and/or family. Voiced understanding. Scripts Ondansetron (Zofran Odt) 8 Mg Tab.rapdis 8 MG PO Q8H PRN for NAUSEA/VOMITING-2ND LINE, #6 TAB 0 Refills Prov: NATALY MILLER 02/10/18 NATALY MILLER Feb 10, 2018 15:37
[2018-02-10 15:42] LABS: BASOPHILS % (AUTO) 0 % (0-10); EOSINOPHILS % (AUTO) 0 % (0-10); HEMATOCRIT 41 % (40-54); HEMOGLOBIN 14.4 G/DL (13.3-17.7); LYMPHOCYTES # (AUTO) 1.5 X 10^3 (1.0-4.0); LYMPHOCYTES % (AUTO) 15 % (12-44); MEAN CORPUSCULAR HEMOGLOBIN 31 PG (25-34); MEAN CORPUSCULAR HGB CONC 35 G/DL (32-36); MEAN CORPUSCULAR VOLUME 89 FL (80-99); MONOCYTES # (AUTO) 1.7 X 10^3 (0.0-1.0); MONOCYTES % (AUTO) 16 % (0-12); NEUTROPHILS # (AUTO) 7.2 X 10^3 (1.8-7.8); NEUTROPHILS % (AUTO) 69 % (42-75); PLATELET COUNT 169 10^3/uL (130-400); RED CELL DISTRIBUTION WIDTH 13.6 % (10.0-14.5); WHITE BLOOD COUNT 10.4 10^3/uL (4.3-11.0)
--- NOTE | 2018-02-10 16:00 | Diagnostic Imaging Report ---
EXAM: Chest 1 view, AP/PA only. INDICATION: Fever. Headache. Blurry vision. COMPARISON: Chest radiographs of 09/13/2009. FINDINGS: Normal heart size and pulmonary vascularity. No focal pulmonary opacity, pleural effusion or pneumothorax. No acute osseous findings. IMPRESSION: No acute cardiopulmonary findings. Dictated by: Dictated on workstation # [id number]
[2018-02-10 16:02] LABS: INR 1.1 (0.8-1.4); PROTHROMBIN TIME PATIENT 14.3 SEC (12.2-14.7)
[2018-02-10 16:05] LABS: ALANINE AMINOTRANSFERASE 13 U/L (0-55); ALBUMIN 4.7 GM/DL (3.2-4.5); ALKALINE PHOSPHATASE 88 U/L (40-136); BILIRUBIN,TOTAL 0.8 MG/DL (0.1-1.0); BUN/CREATININE RATIO 12; CALCIUM 9.7 MG/DL (8.5-10.1); CARBON DIOXIDE 27 MMOL/L (21-32); CHLORIDE 102 MMOL/L (98-107); CREATININE SERUM 1.09 MG/DL (0.60-1.30); GFR ESTIMATED > 60; GLUCOSE 108 MG/DL (70-105); POTASSIUM 3.7 MMOL/L (3.6-5.0); SODIUM 137 MMOL/L (135-145); TOTAL PROTEIN 8.4 GM/DL (6.4-8.2)
[2018-02-10 17:13] LABS: BILIRUBIN,URINE NEGATIVE (NEGATIVE); CLARITY,URINE SLIGHTLY CLOUDY; COLOR,URINE AMBER; GLUCOSE, URINE (UA) NEGATIVE (NEGATIVE); KETONES,URINE 3+ (NEGATIVE); LEUKOCYTE ESTERASE ,URINE 1+ (NEGATIVE); NITRITE,URINE NEGATIVE (NEGATIVE); PH,URINE 7 (5-9); PROTEIN,URINE 2+ (NEGATIVE); UROBILINOGEN,URINE 4 MG/DL (NORMAL)
[2018-02-10 17:24] LABS: BACTERIA,URINE NEGATIVE /HPF; WBC,URINE 0-2 /HPF
[2018-02-10] MEDS ORDERED: ONDA8TAB9 PO (18:02)
[2018-02-10 18:19] VITALS: BP 125/80
== END 2018-02-10 18:19 | disposition home or self-care (01) ==
LOC: EDUNIT# 14:46 → ER 14:47
DX: R50.9 Fever, unspecified (principal); R11.2 Nausea with vomiting, unspecified; F17.210 Nicotine dependence, cigarettes, uncomplicated; Z98.52 Vasectomy status; Z87.442 Personal history of urinary calculi; Z82.49 Family history of ischemic heart disease and other diseases of the circulatory system
CPT/HCPCS: 36415; 71045; 80053; 81000; 83605; 85025; 85610; 85730; 87040; 87088; 96360; 96361

== ENCOUNTER → 2023-05-25 | Outpatient (CLI) | payer BC ==
[~2023-05-25] MED LIST changes: -CIPR500T4 PO; +CIPR500T5 PO; +CYCL10TA25 PO; +GADOTERATE 0.5 MMOL/ML (CLARISCAN) 15 ML VIAL IV ONE; +HYDR-4226 PO; -HYDR-757 PO; +ONDA8TAB9 PO; -OXYC-471 PO; +OXYC1TAB11 PO; -TAMS0.4C98 PO; +TMSL.4C PO
--- NOTE | 2023-05-25 08:35 | Diagnostic Imaging Report ---
PROCEDURE: MR imaging of the brain with and without contrast. TECHNIQUE: Multiplanar, multisequence MR imaging of the brain was performed with and without contrast. INDICATION: Headaches. Chronic but getting worse. COMPARISON: none FINDINGS: No acute ischemia, mass, or hemorrhage. No abnormal enhancement. No focal signal abnormalities. The ventricles, cortical sulci, and basilar cisterns are symmetric and unremarkable. The sellar and suprasellar regions have a normal appearance. The brainstem and posterior fossa are unremarkable. The paranasal sinuses and mastoid air cells demonstrate normal signal characteristics. The globes and orbits are symmetric and unremarkable. The scalp and calvarium have a normal appearance. IMPRESSION: 1. No acute ischemia, mass, or hemorrhage. No abnormal enhancement or focal signal abnormalities. Dictated by: Dictated on workstation # [id number]
== END ==
LOC: RAD 07:45
PROVIDERS: ATTEND Nurse Practitioner Family
DX: R51.9 Headache, unspecified (principal)
CPT/HCPCS: 70553